=== PATIENT | female | born 1995 | race Caucasian/White ===

== ENCOUNTER → 2023-12-22 | Outpatient (CLI) | payer OTHER ==
[~2023-12-22] MED LIST: CODACE30 PO; CRUTCH4 USE; EPIN.3I IM; MULVITMINE PO; NEOCOLOTSU OT; Norco 5-325 Ta1 EACH PO; RXCODACET PO; Zofran Odt4 MG SL
== END ==
LOC: LAB SHORT 10:23 → LAB 10:23
DX: J02.9 Acute pharyngitis, unspecified (principal)
CPT/HCPCS: 87081

== ENCOUNTER → 2024-10-26 | Outpatient (CLI) | payer OTHER ==
[2024-10-28 15:45] LABS: HEPATITIS B SURFACE ANTIGEN Negative (Negative)
[2024-10-28 17:31] LABS: HIV 1,2 COMBO ANTIGEN/ANTIBODY Negative (Negative)
[2024-10-29 17:48] LABS: HCV QNT BY NAAT (IU/ML) Not Detected; HCV QNT BY NAAT (LOG IU/ML) Not Detected; HCV QNT BY NAAT INTERP Not Detected (Not Detected)
[2024-10-30 11:02] LABS: HEPATITIS B SURFACE ANTIBODY <3.10 IU/L
== END ==
LOC: LAB 13:54 → LAB SHORT 13:54
PROVIDERS: Chiropractor
DX: Z20.9 Contact with and (suspected) exposure to unspecified communicable disease (principal)
CPT/HCPCS: 84460; 87340; 87389; 87522